=== PATIENT | female | born 1970 | race Hispanic/Latino ===

== ENCOUNTER 2017-03-28 16:33 | Emergency (ER) | payer SELFPAY ==
[2017-03-28] MEDS ORDERED: MOTRIN PO ONE (18:48)
[2017-03-28] MEDS ORDERED: NORCO 5/325 PO ONE (18:48)
--- NOTE | 2017-03-28 20:29 | XRay Report ---
FINAL REPORT PROCEDURE: XR KNEE THREE VIEWS RIGHT TECHNIQUE: RIGHT knee radiographs, AP, lateral and oblique views. CPT 57097 HISTORY: Knee pain after trauma. Rt knee pain status post fall. COMPARISON: No prior studies are available for comparison. FINDINGS: Fracture (s) and/or Dislocation(s): There is no plain film evidence of distinct acute fracture. There is mild irregularity of the lateral tibial plateau. This could be degenerative or could be related to an old fracture. I feel this is unlikely to be a acute fracture. Alignment: Normal . Joint space(s): Normal . Soft tissues: Normal . Bone mineralization: Mild degenerative change throughout.. Foreign bodies: None . IMPRESSION: 1. There is no plain film evidence of distinct acute fracture or dislocation. 2. Mild degenerative change throughout. 3. Some irregularity of lateral tibial plateau is nonspecific. However I suspect it may be degenerative or could be related to an old fracture rather than an acute nondisplaced fracture.
--- NOTE | 2017-03-28 20:36 | XRay Report ---
FINAL REPORT PROCEDURE: XR ELBOW 2V LT TECHNIQUE: LEFT elbow radiographs, including AP and lateral views. HISTORY: Left elbow pain after trauma lt elbow pain sp fall COMPARISON: No prior studies are available for comparison. FINDINGS: Fracture (s) and/or Dislocation(s): There is no plain film evidence of acute fracture or dislocation.. Alignment: Normal . Joint space(s): Normal . Soft tissues: There is a small focal faint round calcific density in the soft tissues anterior to the distal humerus on the lateral view. The significance of this is uncertain. However this is likely incidental and unrelated to the patient's trauma. Bone mineralization: Normal . Foreign bodies: None . IMPRESSION: There is no plain film evidence of fracture or dislocation or acute finding in the left elbow.
[2017-03-28 21:40] VITALS: BP 122/77
--- NOTE | 2017-03-28 22:06 | Emergency Department Report ---
Entered by NARDA YANG, acting as scribe for HAILEY COBOS NP. ED Fall HPI - General Chief Complaint: Fall Stated Complaint: FALL/LT ARM PAIN Time Seen by Provider: 03/28/17 18:42 Source: patient Mode of arrival: Ambulatory Limitations: No Limitations - History of Present Illness Initial Comments: 46 y/o female presents to ED c/o left arm pain secondary to fall at 1500 today. She reports she was walking in a parking lot at a store when she tripped and fell, twice, denying striking her head or LOC. She reports she felt lightheaded and dazed immediately after the fall. She states she landed on her right knee and her left forearm, attempting to stop her fall. She reports a cramping pain in her left forearm with mild tingling, and radiated pain into her left hand and elbow. She states she has mild right knee pain, noting Hx of right knee surgery greater than 5 years ago. Pt notes she has been ambulatory since the fall. She denies neck pain or back pain. Pt advises she thinks her tetanus is up to date. No additional complaints. MD Complaint: fall Onset/Timin -: Sudden, hour(s) Time: 15:00 Fall From: standing (walking in a parking lot) When Fall Occurred: just prior to arrival Fall Witnessed: yes, by bystander Place Fall Occurred: other (parking lot at a store) Loss of Consciousness: none Prolonged Down Time?: no Symptoms Prior to Fall: other (lightheadedness) Location: other (left arm, right knee) Location - Extremities: Left: Elbow, Forearm (pain, cramping, radiates to elbow and hand), Hand, Right: Knee (pain, struck ground, Hx right knee surgery greater than 5 years ago) Severity: moderate Severity scale (0 -10): 10 Quality: other (cramping) Context: tripped/slipped Associated Symptoms: lightheaded, other (negative back pain, tingling to hands) . denies: neck pain - Related Data Previous Rx's Medication Instructions Recorded Last Taken Type HYDROcodone/APAP 5-325 [[place] 1 each PO Q6HR PRN #10 tablet 03/28/17 Unknown Rx 5/325] Ibuprofen [Motrin] 600 mg PO Q8H PRN #15 tablet 03/28/17 Unknown Rx Allergies Allergy/AdvReac Type Severity Reaction Status Date / Time Penicillins Allergy Hives Verified 03/28/17 16:51 ED Review of Systems Comment: All other systems reviewed and negative Cardiovascular: denies: chest pain Musculoskeletal: other (negative neck pain, postive for left forearm, left elbow , left hand pain, right knee pain). denies: back pain Skin: other (abrasion to R arm ). denies: change in color Neurological: numbness (left forearm, hand), other (Positive for lightheadedness , negative for LOC) ED Past Medical Hx - Past Medical History Previous Medical History?: Yes Hx Headaches / Migraines: Yes Additional medical history: gallstones - Surgical History Past Surgical History?: No - Social History Smoking Status: Former Smoker Substance Use Type: Alcohol - Medications Home Medications: Home Medications Medication Instructions Recorded Confirmed Last Taken Type HYDROcodone/APAP 5-325 [[place] 1 each PO Q6HR PRN #10 tablet 03/28/17 Unknown Rx 5/325] Ibuprofen [Motrin] 600 mg PO Q8H PRN #15 tablet 03/28/17 Unknown Rx ED Physical Exam - General Limitations: No Limitations General appearance: alert, in no apparent distress - Head Head exam: Present: atraumatic, normocephalic, normal inspection - Eye Eye exam: Present: normal appearance, PERRL, EOMI Pupils: Present: normal accommodation - ENT ENT exam: Present: normal exam, normal orophraynx, mucous membranes moist, TM's normal bilaterally, normal external ear exam - Neck Neck exam: Present: normal inspection, full ROM. Absent: tenderness, lymphadenopathy - Respiratory Respiratory exam: Present: normal lung sounds bilaterally. Absent: respiratory distress, wheezes, rales, rhonchi - Cardiovascular Cardiovascular Exam: Present: regular rate, normal rhythm, normal heart sounds - GI/Abdominal GI/Abdominal exam: Present: soft. Absent: distended, tenderness, guarding, rebound - Extremities Exam Extremities exam: Present: tenderness, normal capillary refill - Expanded Upper Extremity Exam Left General: Present: normal inspection. Absent: abrasion Shoulder Exam: Present: normal inspection, full ROM. Absent: tenderness, swelling, abrasion, deformity Upper Arm exam: Present: normal inspection, full ROM. Absent: tenderness (left forearm), swelling, abrasion, deformity Elbow exam: Present: normal inspection, full ROM, tenderness, ecchymosis. Absent: swelling, abrasion, crepidus Forearm Wrist exam: Present: normal inspection, full ROM. Absent: tenderness Hand Wrist exam: Present: normal inspection, full ROM. Absent: tenderness, abrasion, deformity Vascular: Present: normal capillary refill, radial pulse (2+ left radial). Absent: vascular compromise - Expanded Lower Extremity Exam Right Upper Leg exam: Present: normal inspection Knee exam: Present: full ROM, tenderness (R lateral knee ), swelling, abrasion, ecchymosis. Absent: dislocation Lower Leg exam: Present: normal inspection, full ROM. Absent: tenderness Ankle exam: Present: normal inspection, full ROM. Absent: tenderness - Back Exam Back exam: Present: normal inspection, full ROM. Absent: tenderness, muscle spasm, paraspinal tenderness, vertebral tenderness - Neurological Exam Neurological exam: Present: alert, oriented X3, CN II-XII intact. Absent: altered, motor sensory deficit - Psychiatric Psychiatric exam: Present: normal affect, normal mood - Skin Skin exam: Present: warm, dry, normal color, abrasion (superfical abrasion to R fa, no active bleeding ) ED Course Vital Signs 03/28/17 03/28/17 16:45 21:39 Temperature 98.3 F 98.4 F Pulse Rate 96 H 90 Respiratory 20 20 Rate Blood Pressure 125/87 Blood Pressure 122/77 [Right] O2 Sat by Pulse 99 99 Oximetry - Reevaluation(s) Reevaluation #1: 03/28/17 20:44 PT states pain medication helped decrease her pain. PT aware of XR results and plan of care. Reevaluation #2: 03/28/17 22:05 PT placed in L arm sling and R knee immobilizer by nurse. PT NVI. - Pulse Oximetry Interpretation Digit-Finger Initial Pulse Oximetry Readin Actions Taken: none ED Medical Decision Making - Radiology Data Radiology results: report reviewed, image reviewed L elbow- No fx R knee- OA, no fx - Differential Diagnosis fracture, contusion, abrasion Critical Care Time: No ED Disposition Clinical Impression: Fall Qualifiers: Encounter type: initial encounter Qualified Code(s): W19.XXXA - Unspecified fall, initial encounter Left elbow contusion Qualifiers: Encounter type: initial encounter Qualified Code(s): S50.02XA - Contusion of left elbow, initial encounter Contusion of right knee Qualifiers: Encounter type: initial encounter Qualified Code(s): S80.01XA - Contusion of right knee, initial encounter Disposition: DISCHARGED TO HOME OR SELFCARE Is pt being admited?: No Does the pt Need Aspirin: No Condition: Stable Instructions: Knee Sprain (ED), Elbow Sprain (ED), Knee Pain (ED), RICE Therapy (ED), Fall Prevention (ED), Knee Immobilizer (ED) Additional Instructions: No driving or ETOH after [place] Follow up with your orthopedist in 2-3 days Your injuries may require further imaging. Prescriptions: HYDROcodone/APAP 5-325 [[place] 5/325] 1 each PO Q6HR PRN #10 tablet PRN Reason: Pain Ibuprofen [Motrin] 600 mg PO Q8H PRN #15 tablet PRN Reason: Pain Referrals: PRIMARY CARE, [Primary Care Provider] - 3-5 Days OPAL GUERRERO MD [Staff Physician] - 3-5 Days Time of Disposition: 20:49 This documentation as recorded by the CELIA pelletier AHSAN,accurately reflects the service I personally performed and the decisions made by ,HAILEY COBOS, MICHELLE.
== END 2017-03-28 22:49 | disposition home or self-care (01) ==
LOC: ED 16:33
DX: S50.02XA Contusion of left elbow, initial encounter (principal); S80.01XA Contusion of right knee, initial encounter; W18.30XA Fall on same level, unspecified, initial encounter; Y93.9 Activity, unspecified; Y92.9 Unspecified place or not applicable; Y99.9 Unspecified external cause status
CPT/HCPCS: 99284

== ENCOUNTER 2019-04-13 10:31 | Emergency (ER) | payer OTHER ==
[2019-04-13 11:31] LABS: Basophils # (Auto) 0.1 K/mm3 (0.0-0.1); Basophils % (Auto) 1.5 % (0.0-1.8); Eosinophils # (Auto) 0.2 K/mm3 (0.0-0.4); Eosinophils % (Auto) 2.7 % (0.0-4.3); Hematocrit 36.9 % (30.3-42.9); Hemoglobin 12.7 gm/dl (10.1-14.3); Lymphocytes % (Auto) 30.2 % (13.4-35.0); Mean Corpuscular HGB Conc 34 % (30-34); Mean Corpuscular Volume 86 fl (79-97); Monocytes # (Auto) 0.3 K/mm3 (0.0-0.8); Monocytes % (Auto) 5.2 % (0.0-7.3); Platelet Count 312 K/mm3 (140-440); Red Cell Distribution Width 14.2 % (13.2-15.2)
[2019-04-13] MEDS ORDERED: SUBLIMAZE IV ONE ×3 (11:47→16:30)
[2019-04-13] MEDS ORDERED: ZOFRAN IV ONE (11:47)
[2019-04-13 11:56] LABS: BUN/Creatinine Ratio 17; Blood Urea Nitrogen 12 mg/dL (7-17); Hemolysis Index 6
--- NOTE | 2019-04-13 12:05 | XRay Report ---
AP CHEST: HISTORY: chest pain AP view of the chest demonstrates a normal mediastinal and cardiac contour with clear lungs and normal bony and soft tissue structures. IMPRESSION: Unremarkable AP chest.
--- NOTE | 2019-04-13 12:31 | Emergency Department Report ---
HPI - General Chief Complaint: Chest Pain Time Seen by Provider: 04/13/19 11:35 - HPI HPI: Room 4 The patient is a 49-year-old female presenting with a chief complaint of chest pain. Patient states her symptoms began this morning with substernal chest pain described as a tightness radiating to her back. Patient states she has had shortness of breath associated with this pain but denies nausea/vomiting or diaphoresis. Patient admits to pleuritic component. The patient states she's had a nonproductive cough intermittently for several months. Patient denies any history of fever or recent flights/long car trips. Patient currently gives her pain a score of 8/10. Patient states she's never had a stress test or cardiac catheterization Location: [See above] Duration: [See above] Quality: [See above] Severity: [See above] Modifying factors: [see above] Context: [see above] Mode of transportation: [not driving] ED Past Medical Hx - Past Medical History Hx Headaches / Migraines: Yes Additional medical history: gallstones - Surgical History Additional Surgical History: Knee surgery - Family History Family history: no significant - Social History Smoking Status: Never Smoker Substance Use Type: None (patient denies illicit drug use) - Medications Home Medications: Home Medications Medication Instructions Recorded Confirmed Last Taken Type No Known Home Medications [No 04/13/19 04/13/19 Unknown History Reported Home Medications] ED Review of Systems ROS: Stated complaint: CHEST PAIN/ANDREY Other details as noted in HPI Constitutional: denies: diaphoresis Eyes: denies: eye pain ENT: denies: throat pain Respiratory: shortness of breath, other (pleurisy) Cardiovascular: chest pain Endocrine: no symptoms reported Gastrointestinal: denies: nausea, vomiting Genitourinary: denies: dysuria Musculoskeletal: denies: back pain Neurological: denies: headache Physical Exam - Physical Exam Vital Signs: Vital Signs 04/13/19 11:08 Temperature 98.3 F Pulse Rate 83 Respiratory 18 Rate Blood Pressure 143/94 O2 Sat by Pulse 97 Oximetry Physical Exam: GENERAL: The patient is well-developed well-nourished female lying on stretcher not appearing to be in acute distress. [] HEENT: Normocephalic. Atraumatic. Extraocular motions are intact. Patient has moist mucous membranes. NECK: Supple. Trachea midline CHEST/LUNGS: Clear to auscultation. There is no respiratory distress noted. HEART/CARDIOVASCULAR: Regular. There is no tachycardia. There is no gallop rub or murmur. ABDOMEN: Abdomen is soft, nontender. Patient has normal bowel sounds. There is no abdominal distention. SKIN: There is no rash. There is no edema. There is no diaphoresis. NEURO: The patient is awake, alert, and oriented. The patient is cooperative. The patient has normal speech MUSCULOSKELETAL: There is no evidence of acute injury. ED Course Vital Signs 04/13/19 11:08 Temperature 98.3 F Pulse Rate 83 Respiratory 18 Rate Blood Pressure 143/94 O2 Sat by Pulse 97 Oximetry ED Medical Decision Making - Lab Data Result diagrams: 04/13/19 11:20 04/13/19 11:20 Laboratory Tests 04/13/19 04/13/19 04/13/19 11:20 11:20 11:20 WBC 6.7 RBC 4.30 Hgb 12.7 Hct 36.9 MCV 86 MCH 30 MCHC 34 RDW 14.2 Plt Count 312 Lymph % (Auto) 30.2 Dent % (Auto) 5.2 Eos % (Auto) 2.7 Baso % (Auto) 1.5 Lymph # 2.0 Dent # 0.3 Eos # 0.2 Baso # 0.1 Seg Neutrophils % 60.4 Seg Neutrophils # 4.0 D-Dimer Sodium 139 Potassium 4.4 Chloride 102.5 Carbon Dioxide 25 Anion Gap 16 BUN 12 Creatinine 0.7 Estimated GFR > 60 BUN/Creatinine Ratio 17 Glucose 97 Calcium 9.0 Troponin T < 0.010 HCG, Qual Negative 04/13/19 11:53 WBC RBC Hgb Hct MCV MCH MCHC RDW Plt Count Lymph % (Auto) Dent % (Auto) Eos % (Auto) Baso % (Auto) Lymph # Dent # Eos # Baso # Seg Neutrophils % Seg Neutrophils # D-Dimer 253.02 H Sodium Potassium Chloride Carbon Dioxide Anion Gap BUN Creatinine Estimated GFR BUN/Creatinine Ratio Glucose Calcium Troponin T HCG, Qual - EKG Data -: EKG Interpreted by Nj EKG shows normal: sinus rhythm Rate: normal - EKG Data When compared to previous EKG there are: previous EKG unavailable Interpretation: other (no ischemic changes seen) - Radiology Data Radiology results: report reviewed (chest x-ray, CT chest), image reviewed (chest x-ray, CT chest) interpreted by me: Chest x-ray-no focal infiltrates, no pneumothorax [facility] [address] [place] [address] XRay Report Signed Patient: HAILEY WILCOX MR#: [id number] : 1970 Acct:[id number] Age/Sex: 49 / F ADM Date: 04/13/19 Loc: ED Attending Dr: Ordering Physician: MIRTHA HOLMAN MD Date of Service: 04/13/19 Procedure(s): XR chest 1V ap Accession Number(s): [id number] cc: MIRTHA HOLMAN MD Fluoro Time In Minutes: AP CHEST: HISTORY: chest pain AP view of the chest demonstrates a normal mediastinal and cardiac contour with clear lungs and normal bony and soft tissue structures. IMPRESSION: Unremarkable AP chest. Transcribed By: TTR Dictated By: MARÍA FRANCO JR, MD Electronically Authenticated By: MARÍA FRNACO JR, MD Signed Date/Time: 04/13/19 1201 DD/ 1200 TD/TT: 04/13/[address] chest (read by radiologist)-minimal dependent atelectasis and otherwise negative exam. - Differential Diagnosis ACS, PE, pericarditis, GERD Critical care attestation.: If time is entered above; I have spent that time in minutes in the direct care of this critically ill patient, excluding procedure time. ED Disposition Clinical Impression: Chest pain Disposition: 09 OP ADMIT IP TO THIS HOSP Is pt being admited?: Yes Does the pt Need Aspirin: Yes Condition: Fair Instructions: Chest Pain (ED) Time of Disposition: 14:39 (Hospitalist notified (Dr Barahona))
--- NOTE | 2019-04-13 14:31 | Cat Scan Report ---
PROCEDURE: CT ANGIO CHEST TECHNIQUE: Computerized tomographic angiography of the chest was performed during the IV injection o f iodinated nonionic contrast including image processing. The image data was postprocessed using 2-d imensional multiplanar reformatted (MPR) and 3-dimensional (MIP and/or volume rendered) techniques. A utomated exposure control, adjustment of mA and/or kV according to patient size, or iterative reconst ruction dose optimization techniques were utilized. CT DOSE LENGTH PRODUCT: 724.5 mGycm HISTORY: chest pain, pleurisy COMPARISONS: None . FINDINGS: Pulmonary out flow tract, right and left main pulmonary arteries and the approximal branches: Clear, no filling defects seen to suggest pulmonary embolus. Pericardium: No evidence of pericardial effusion. Thoracic aorta: No evidence of aneurysmal dilatation or dissection. Coronary arteries: Unremarkable. Mediastinum and hilar regions: Non specific subcentimeter lymph nodes are visualized. No pathologica lly enlarged lymph nodes or masses are identified. Lung [place]: Minimal dependent atelectasis. Lungs otherwise are clear. Upper abdomen: No acute or focal abnormality is seen. Other: No acute bone abnormalities identified. IMPRESSION: Minimal dependent atelectasis otherwise negative exam. This document is electronically signed by Osmin Blount MD., Apr 13 2019 02:29:53 PM ET
[2019-04-13] MEDS ORDERED: ASPIRIN PO ONE (14:40)
[2019-04-13] MEDS ORDERED: PROTONIX PO ONE (14:46)
[2019-04-13 15:23] LABS: Alanine Aminotransferase 19 units/L (7-56); Albumin 3.9 g/dL (3.9-5)
[2019-04-13 15:30] LABS: Bilirubin,Direct < 0.2 mg/dL (0-0.2)
[2019-04-13 15:54] VITALS: BP 116/65
--- NOTE | 2019-04-13 17:41 | Event Note ---
Date: 04/13/19 49 YO Female presents to ED for evaluation. Pt treated IAW ACS protocol. Serial cardiac enzymes, ekg, and telemetry were unremarkable. D dimer was elevated, but CTA chest was negative for PE. Pt medically optimized and back to usual state of health. Pt discharged home and instructed to F/U pcp 1wk, Cardiology prn for further outpatient testing. Pt symptoms consistent with GERD. Pt treated with PPI therapy, and discharged with PPI. GENERAL: The patient is well-developed well-nourished female lying on stretcher not appearing to be in acute distress. [] HEENT: Normocephalic. Atraumatic. Extraocular motions are intact. Patient has moist mucous membranes. NECK: Supple. Trachea midline CHEST/LUNGS: Clear to auscultation. There is no respiratory distress noted. HEART/CARDIOVASCULAR: Regular. There is no tachycardia. There is no gallop rub or murmur. ABDOMEN: Abdomen is soft, nontender. Patient has normal bowel sounds. There is no abdominal distention. SKIN: There is no rash. There is no edema. There is no diaphoresis. NEURO: The patient is awake, alert, and oriented. The patient is cooperative. The patient has normal speech MUSCULOSKELETAL: There is no evidence of acute injury.
== END 2019-04-13 18:07 | disposition admitted as inpatient to this hospital (09) ==
LOC: ED 10:31
DX: R07.89 Other chest pain (principal); G43.909 Migraine, unspecified, not intractable, without status migrainosus; Z98.890 Other specified postprocedural states; Z88.0 Allergy status to penicillin
CPT/HCPCS: 36415; 71045; 71275; 80048; 80076; 84484; 84703; 85025; 85379; 93005; 93010; 96374; 96375; 96376; 99285; J2405; J3010; Q9967

== ENCOUNTER 2021-03-30 06:50 | Inpatient (IN) | payer OTHER, SELFPAY ==
[2021-03-30 08:04] LABS: Bacteria,Urine 1+ /HPF (Negative); Bilirubin,Urine NEG (Negative); Blood,Urine MOD (Negative); Color,Urine Yellow (Yellow); Mucus,Urine FEW /HPF; Urobilinogen,Urine < 2.0 mg/dL (<2.0)
--- NOTE | 2021-03-30 08:05 | Emergency Department Report ---
Blank Doc - Documentation Documentation: 50-year-old female with RLQ pain with n/v. 1- This initial assessment/diagnostic orders/clinical plan/ treatment(s) is/are subject to change based on pt's health status, clinical progression and re- assessment by fellow clinical providers in the ED. Further treatment and workup at subsequent clinical provers discretion. Patient/guardians urged not to elope from ED as their condition may be serious if not clinically assessed and managed. 2-labs 3-UA
[2021-03-30 09:19] LABS: Basophils # (Auto) 0.1 K/mm3 (0.0-0.1); Basophils % (Auto) 0.7 % (0.0-1.8); Eosinophils # (Auto) 0.2 K/mm3 (0.0-0.4); Eosinophils % (Auto) 2.3 % (0.0-4.3); Lymphocytes # (Auto) 1.8 K/mm3 (1.2-5.4); Lymphocytes % (Auto) 24.2 % (13.4-35.0); Mean Corpuscular HGB Conc 33 % (30-34); Mean Corpuscular Volume 88 fl (79-97); Monocytes # (Auto) 0.4 K/mm3 (0.0-0.8); Monocytes % (Auto) 5.3 % (0.0-7.3); Platelet Count 321 K/mm3 (140-440); Red Blood Count 4.09 M/mm3 (3.65-5.03); Red Cell Distribution Width 13.6 % (13.2-15.2)
[2021-03-30 09:28] LABS: Alanine Aminotransferase 15 units/L (7-56); Albumin 4.1 g/dL (3.9-5); BUN/Creatinine Ratio 19; Blood Urea Nitrogen 15 mg/dL (7-17); Calcium 8.8 mg/dL (8.4-10.2); Hemolysis Index 6
[2021-03-30] MEDS ORDERED: ONDANSETRON 4 MG ODT TAB PO ONE (10:40)
--- NOTE | 2021-03-30 10:42 | Emergency Department Report ---
HPI - General Chief Complaint: Abdominal Pain Time Seen by Provider: 03/30/21 07:30 - HPI HPI: This is a 50-year-old female presents to the emergency department with a complaint of right upper quadrant abdominal pain, along with nausea and vomiting, that started this morning. Patient says she woke up around 3 AM with the pain and then the nausea with vomiting started about 5 AM. Currently her abdominal pain is 5 out of 10 intensity. No known aggravating or alleviating factors. She does have a history of previous gallstones and says that this feels similar. She denies any fever, chest pain, back pain, diarrhea or constipation, vaginal bleeding or discharge, or dysuria. She has not taken anything for symptoms prior to presentation today. No recent travel or sick contacts at home. ED Past Medical Hx - Past Medical History Hx Headaches / Migraines: Yes Additional medical history: gallstones - Surgical History Additional Surgical History: Knee surgery - Social History Smoking Status: Never Smoker Substance Use Type: None - Medications Home Medications: Home Medications Medication Instructions Recorded Confirmed Last Taken Type Pantoprazole [Protonix] 40 mg PO QDAY #30 tablet 04/13/19 Unknown Rx ED Review of Systems ROS: Stated complaint: VOMITING/RT STOMACH PAIN Other details as noted in HPI Comment: All other systems reviewed and negative Constitutional: denies: chills, fever Eyes: denies: eye pain, vision change ENT: denies: ear pain, throat pain Respiratory: denies: cough, shortness of breath Cardiovascular: denies: chest pain, palpitations Gastrointestinal: abdominal pain, nausea, vomiting Genitourinary: denies: dysuria, discharge Musculoskeletal: denies: back pain, arthralgia Skin: denies: rash, lesions Neurological: denies: headache, weakness Physical Exam - Physical Exam Vital Signs: Vital Signs 03/30/21 10:26 Temperature 98 F Pulse Rate 77 Respiratory 16 Rate Blood Pressure 141/96 [Right] O2 Sat by Pulse 100 Oximetry Physical Exam: GENERAL: The patient is well-developed well-nourished. HENT: Normocephalic. Atraumatic. Patient has moist mucous membranes. EYES: Extraocular motions are intact. NECK: Supple. Trachea is midline. CHEST/LUNGS: Clear to auscultation. There is no respiratory distress noted. HEART/CARDIOVASCULAR: Regular. There is no tachycardia. There is no murmur. ABDOMEN: Abdomen is soft. Right upper quadrant abdominal tenderness to palpation. No guarding. No peritoneal signs with heel strike. Patient has normal bowel sounds. There is no abdominal distention. SKIN: Skin is warm and dry. NEURO: The patient is awake, alert, and cooperative. The patient has no focal neurologic deficits. Normal speech. MUSCULOSKELETAL: There is no tenderness or deformity. There is no limitation range of motion. BACK: No CVA tenderness to palpation. ED Course Vital Signs 03/30/21 10:26 Temperature 98 F Pulse Rate 77 Respiratory 16 Rate Blood Pressure 141/96 [Right] O2 Sat by Pulse 100 Oximetry - Consultations Consultation #1: 03/30/21 12:33 I spoke to the general surgeon on-call, Dr. Suresh. She asked for the patient to get some gentle IV fluid, IV antibiotics, clear liquid diet for the rest of the day, nothing by mouth after midnight, and for the patient to be admitted to the hospitalist service. ED Medical Decision Making - Lab Data Result diagrams: 03/30/21 07:58 03/30/21 07:58 - Radiology Data Radiology results: report reviewed Abdominal ultrasound-Limited INDICATION: Right upper quadrant pain FINDINGS: Aorta and IVC appear normal. Liver appears normal. Gallbladder wall is thickened measuring 3 to 4 mm. Common bile duct measures 4 mm. Pancreas visualized appears normal. Body habitus limits examination. Echogenic focus is seen in the gallbladder suggesting multiple gallstones. IMPRESSION: 1. Cholelithiasis with gallbladder wall thickening. Findings could represent early cholecystitis. Clinical correlation. - Medical Decision Making This patient presents with right upper quadrant abdominal pain and nausea with vomiting that started earlier this morning. On examination there is reproducible right upper quadrant abdominal tenderness to palpation. Labs are mostly unremarkable including CBC, metabolic panel and urinalysis. A right upper quadrant abdominal ultrasound was done that shows cholelithiasis with some gallbladder wall thickening concerning for early cholecystitis. General surgery was contacted and consulted and their recommendations are in the chart in the consultation section. Clear liquid diet during the day and nothing by mouth after midnight. The patient was presented to the hospitalist, Dr. Barahona, for admission. Critical Care Time: No Critical care attestation.: If time is entered above; I have spent that time in minutes in the direct care of this critically ill patient, excluding procedure time. ED Disposition Clinical Impression: Acute cholecystitis Cholelithiasis Qualifiers: Cholelithiasis location: gallbladder Cholecystitis presence: with cholecystitis Cholecystitis acuity: unspecified acuity Biliary obstruction: without biliary obstruction Qualified Code(s): K80.10 - Calculus of gallbladder with chronic cholecystitis without obstruction Disposition: DC-09 OP ADMIT IP TO THIS HOSP Is pt being admited?: Yes Condition: Fair Instructions: Abdominal Pain (ED) Time of Disposition: 13:32
--- NOTE | 2021-03-30 11:56 | Ultrasound Report ---
Abdominal ultrasound-Limited INDICATION: Right upper quadrant pain FINDINGS: Aorta and IVC appear normal. Liver appears normal. Gallbladder wall is thickened measuring 3 to 4 mm. Common bile duct measures 4 mm. Pancreas visualized appears normal. Body habitus limits ex amination. Echogenic focus is seen in the gallbladder suggesting multiple gallstones. IMPRESSION: 1. Cholelithiasis with gallbladder wall thickening. Findings could represent early cholecystitis. Cli nical correlation. Signer Name: Philip Broderick MD Signed: 03/30/2021 11:52 AM Workstation Name: [id number]
[2021-03-30] MEDS ORDERED: metroNIDAZOLE/NS 500 MG/100 ML 500 MG/100 ML BAG IV ONE (12:32)
[2021-03-30] MEDS ORDERED: SODIUM CHLORIDE 0.9% 1000 ML 1,000 ML IV ONE (12:33)
[2021-03-30] MEDS ORDERED: MORPHINE 4 MG/1 ML INJ IV ONE (13:01)
[2021-03-30] MEDS ORDERED: ONDANSETRON 4 MG/2 ML INJ IV PRN (14:48)
[2021-03-30] MEDS ORDERED: ACETAMINOPHEN 325 MG TAB PO PRN (14:48)
--- NOTE | 2021-03-30 14:56 | History and Physical Report ---
History of Present Illness Chief complaint: My stomach hurts History of present illness: 50 YO Female with GERD, Cholelithiasis presents to ED for evaluation. Pt states that she reports "My stomach hurts". Pt states that she has experienced abdominal pain over the past 1 day with persistent symptoms over the same time frame. Pt states that pain is 7/10, constant, localized to the right upper quadrant,nonradiating, associated with nausea and multiple episodes of vomiting. Patient awakened at 0300 hrs with abdominal pain. Pt denies fever, chills, chest pain, back pain, palpitations, productive cough, skin rash, recent ill contacts, ingestion of food/water from new of different sources, or known exposure to COVID 19. Pt transported to [facility] via private vehicle for further care and evaluation of the aforementioned symptoms. Pt seen and evaluated in ED. All labs and images reviewed. Pt underwent Ultrasound abdomen and pelvis and found to have evidence of cholecystitis. Surgery team consulted in ED. Pt pending surgical intervention. No prior admission for review. No medication listed at time of admission for reconciliation. Past History Past Medical History: GERD, other (see hpi) Past Surgical History: Other (Knee surgery) Social history: , lives with family Family history: no significant family history (reviewed) Medications and Allergies Allergies Allergy/AdvReac Type Severity Reaction Status Date / Time Penicillins Allergy Hives Verified 03/30/21 07:22 Home Medications Medication Instructions Recorded Confirmed Last Taken Type Pantoprazole [Protonix] 40 mg PO QDAY #30 tablet 04/13/19 Unknown Rx Active Meds: Active Medications Acetaminophen (Acetaminophen 325 Mg Tab) 650 mg PO Q4H PRN PRN Reason: Pain MILD(1-3)/Fever >100.5/AMES Sodium Chloride (Nacl 0.9% 1000 Ml) 1,000 mls @ 125 mls/hr IV ONCE ONE Stop: 03/30/21 20:32 Last Admin: 03/30/21 12:59 Dose: 125 mls/hr Documented by: Sodium Chloride (Nacl 0.9% 1000 Ml) 1,000 mls @ 125 mls/hr IV DIRECT [place] Ondansetron HCl (Ondansetron 4 Mg/2 Ml Inj) 4 mg IV Q8H PRN PRN Reason: Nausea And Vomiting Sodium Chloride (Sodium Chloride 0.9% 10 Ml Flush Syringe) 10 ml IV BID [place] Sodium Chloride (Sodium Chloride 0.9% 10 Ml Flush Syringe) 10 ml IV PRN PRN PRN Reason: LINE FLUSH Review of Systems Constitutional: no weight loss, no weight gain, no fever, no chills Ears, nose, mouth and throat: no ear pain, no ear discharge, no tinnitis, no nasal congestion Breasts: no change in shape, no swelling, no mass Cardiovascular: no chest pain, no syncope Respiratory: no cough, no cough with sputum Gastrointestinal: abdominal pain, nausea, vomiting, no change in bowel habits, no hematemesis, no BRBPR, no melena, no hematochezia Genitourinary Female: no pelvic pain, no flank pain, no dysuria, no urinary f requency, no urgency Rectal: no pain, no incontinence, no bleeding Musculoskeletal: no neck stiffness, no arm numbness/tingling, no low back pain, no leg numbness/tingling, no redness of joints Integumentary: no rash, no pruritis, no redness, no sores, no wounds, no boils Neurological: no head injury, no paralysis, no weakness, no parathesias, no numbness, no seizures, no syncope Psychiatric: no anxiety, no memory loss, no change in sleep habits, no insomnia, no change in appetite, no change in libido, no disorientation Endocrine: no cold intolerance, no heat intolerance, no excessive thirst, no polydipsia, no polyuria Hematologic/Lymphatic: no easy bruising, no lymphadenopathy Allergic/Immunologic: no urticaria, no allergic rhinitis, no wheezing, no persistent infections, no anaphylaxis Exam - Constitutional Vitals: Temp Pulse Resp BP Pulse Ox 98.2 F 77 18 128/75 98 03/30/21 13:01 03/30/21 13:01 03/30/21 13:01 03/30/21 13:01 03/30/21 13:01 General appearance: Present: mild distress, obese - EENT Eyes: Present: PERRL ENT: hearing intact, clear oral mucosa - Neck Neck: Present: supple, normal ROM - Respiratory Respiratory effort: normal Respiratory: bilateral: CTA - Cardiovascular Heart Sounds: Present: S1 & S2. Absent: rub, click - Extremities Extremities: pulses symmetrical, No edema Peripheral Pulses: within normal limits - Abdominal General gastrointestinal: Present: soft, non-tender, non-distended, normal bowel sounds Female genitourinary: Present: normal - Integumentary Integumentary: Present: clear, warm, dry - Musculoskeletal Musculoskeletal: gait normal, strength equal bilaterally - Psychiatric Psychiatric: appropriate mood/affect, intact judgment & insight - Neurologic Neurologic: CNII-XII intact, moves all extremities Results - Labs CBC & Chem 7: 03/30/21 07:58 03/30/21 07:58 Labs: Abnormal lab results 03/30/21 Range/Units 07:58 Glucose 113 H (65-100) mg/dL Assessment and Plan - Patient Problems (1) Acute cholecystitis Current Visit: Yes Status: Acute Plan to address problem: Bowel rest, ultrasound abdomen, IVF resuscitation therapy, pain control, IV antibiotic therapy, surgery team consulted. (2) Obesity (BMI 30-39.9) Current Visit: Yes Status: Acute Plan to address problem: Balanced diet, increased physical activity at discharge, outpatient pulmonary F/U for sleep study (3) GERD (gastroesophageal reflux disease) Current Visit: No Status: Acute Qualifiers: Esophagitis presence: without esophagitis Qualified Code(s): K21.9 - Gastro-esophageal reflux disease without esophagitis Plan to address problem: PPI therapy, supportive care. (4) DVT prophylaxis Current Visit: Yes Status: Acute Plan to address problem: SCD to BLE while in bed, Pt is ambulatory
--- NOTE | 2021-03-30 17:31 | Consultation ---
History of Present Illness Consult date: 03/30/21 Reason for consult: gallstones Chief complaint: Abdominal pain - History of present illness History of present illness: 50-year-old female with a past medical history of hyperlipidemia presented to the emergency room with acute onset right upper quadrant abdominal pain at 3 in the morning that woke her from sleep. The patient states the pain is nagging and is localized to the right side of the abdomen. There are no alleviating or exacerbating factors. She has had pain like this in the past several times however states it was more mild. She has presented to the ER for this in the past I was told she had gallstones. She states she was never referred to a surgeon. During this episode, the patient had multiple episodes of nausea and vomiting. No fevers or chills. No diarrhea, constipation. Her last meal was steak. Past History Past Medical History: GERD, hyperlipidemia, other (Ulysses's) Past Surgical History: Other (Knee surgery) Social history: , lives with family Family history: no significant family history (reviewed) Medications and Allergies Allergies Allergy/AdvReac Type Severity Reaction Status Date / Time Penicillins Allergy Hives Verified 03/30/21 07:22 Home Medications Medication Instructions Recorded Confirmed Last Taken Type Pantoprazole [Protonix] 40 mg PO QDAY #30 tablet 04/13/19 Unknown Rx Active Meds: Active Medications Acetaminophen (Acetaminophen 325 Mg Tab) 650 mg PO Q4H PRN PRN Reason: Pain MILD(1-3)/Fever >100.5/AMES Sodium Chloride (Nacl 0.9% 1000 Ml) 1,000 mls @ 125 mls/hr IV ONCE ONE Stop: 03/30/21 20:32 Last Admin: 03/30/21 12:59 Dose: 125 mls/hr Documented by: Sodium Chloride (Nacl 0.9% 1000 Ml) 1,000 mls @ 125 mls/hr IV DIRECT [place] Levofloxacin/Dextrose (Levaquin 500mg/100ml) 500 mg in 100 mls @ 100 mls/hr IV Q24H [place]; Protocol Metronidazole (Flagyl 500 Mg/100 Ml) 500 mg in 100 mls @ 100 mls/hr IV Q8H [place]; Protocol Morphine Sulfate (Morphine 2 Mg/1 Ml Inj) 2 mg IV Q4H PRN PRN Reason: Pain, Moderate (4-6) Ondansetron HCl (Ondansetron 4 Mg/2 Ml Inj) 4 mg IV Q8H PRN PRN Reason: Nausea And Vomiting Sodium Chloride (Sodium Chloride 0.9% 10 Ml Flush Syringe) 10 ml IV BID [place] Sodium Chloride (Sodium Chloride 0.9% 10 Ml Flush Syringe) 10 ml IV PRN PRN PRN Reason: LINE FLUSH Review of Systems All systems: negative (10 point ROS performed and negative except for that listed in HPI) Exam Vital Signs Temp Pulse Resp BP Pulse Ox 98.6 F 75 18 144/105 99 03/30/21 07:21 03/30/21 07:21 03/30/21 07:21 03/30/21 07:21 03/30/21 07:21 Narrative exam: Gen.: Awake, alert, oriented x3. No apparent distress ENT: Trachea midline. No lymphadenopathy. No scleral icterus or conjunctival pallor CV: S1, S2 present Respiratory: No audible wheezes Abdomen: Soft, nondistended, right upper quadrant tenderness to palpation. No rebound, rigidity, guarding Extremities: No clubbing, cyanosis, edema Results - Labs 03/30/21 07:58 03/30/21 07:58 Abnormal lab results 03/30/21 Range/Units 07:58 Glucose 113 H (65-100) mg/dL Diabetes panel 03/30/21 Range/Units 07:58 Sodium 138 (137-145) mmol/L Potassium 4.5 (3.6-5.0) mmol/L Chloride 105.4 (98-107) mmol/L Carbon Dioxide 25 (22-30) mmol/L BUN 15 (7-17) mg/dL Creatinine 0.8 (0.6-1.2) mg/dL Glucose 113 H (65-100) mg/dL Calcium 8.8 (8.4-10.2) mg/dL AST 14 (5-40) units/L ALT 15 (7-56) units/L Alkaline Phosphatase 63 (35-129) units/L Total Protein 7.1 (6.3-8.2) g/dL Albumin 4.1 (3.9-5) g/dL Calcium panel 03/30/21 Range/Units 07:58 Calcium 8.8 (8.4-10.2) mg/dL Albumin 4.1 (3.9-5) g/dL Pituitary panel 03/30/21 Range/Units 07:58 Sodium 138 (137-145) mmol/L Potassium 4.5 (3.6-5.0) mmol/L Chloride 105.4 (98-107) mmol/L Carbon Dioxide 25 (22-30) mmol/L BUN 15 (7-17) mg/dL Creatinine 0.8 (0.6-1.2) mg/dL Glucose 113 H (65-100) mg/dL Calcium 8.8 (8.4-10.2) mg/dL Adrenal panel 03/30/21 Range/Units 07:58 Sodium 138 (137-145) mmol/L Potassium 4.5 (3.6-5.0) mmol/L Chloride 105.4 (98-107) mmol/L Carbon Dioxide 25 (22-30) mmol/L BUN 15 (7-17) mg/dL Creatinine 0.8 (0.6-1.2) mg/dL Glucose 113 H (65-100) mg/dL Calcium 8.8 (8.4-10.2) mg/dL Total Bilirubin < 0.20 (0.1-1.2) mg/dL AST 14 (5-40) units/L ALT 15 (7-56) units/L Alkaline Phosphatase 63 (35-129) units/L Total Protein 7.1 (6.3-8.2) g/dL Albumin 4.1 (3.9-5) g/dL - Imaging US - abdomen: report reviewed, image reviewed Assessment and Plan 50-year-old female with acute cholecystitis Plan: 1. CLD, NPO p MN tonight 2. IVF 3. prn pain and nausea control 4. DVT ppx 5. abx 6. Recommend cholecystectomy. I explained the pathophysiology of gallbladder disease to the patient. I discussed all risks, benefits, alternatives to surgery with the patient. All questions answered and consent obtained. Patient to be added onto the OR schedule for tomorrow 03/31/2021. Thank you for this consultation. Please call with any questions or concerns. Evaluation and treatment of this patient was during the time of the national and state emergency arising from COVID19 coronavirus pandemic. Treatment and procedures performed meet the current and available best practice and guidelines for patient during the COVID pandemic.
[2021-03-30] MEDS: MORPHINE 2 MG/1 ML INJ IV PRN ×2 (19:25→23:49)
[2021-03-30] MEDS: SODIUM CHLORIDE 0.9% 1000 ML 1,000 ML IV SCH (19:30)
[2021-03-30] MEDS: metroNIDAZOLE/NS 500 MG/100 ML 500 MG/100 ML BAG IV SCH (22:25)
[2021-03-31] MEDS: MORPHINE 2 MG/1 ML INJ IV PRN (05:17)
[2021-03-31] MEDS: SODIUM CHLORIDE 0.9% 1000 ML 1,000 ML IV SCH ×2 (05:18→21:55)
[2021-03-31] MEDS: metroNIDAZOLE/NS 500 MG/100 ML 500 MG/100 ML BAG IV SCH ×2 (05:31→14:25)
[2021-03-31 07:57] LABS: Basophils % (Auto) 0.6 % (0.0-1.8); Eosinophils # (Auto) 0.2 K/mm3 (0.0-0.4); Eosinophils % (Auto) 2.5 % (0.0-4.3); Hematocrit 32.5 % (30.3-42.9); Hemoglobin 10.9 gm/dl (10.1-14.3); Lymphocytes # (Auto) 2.1 K/mm3 (1.2-5.4); Lymphocytes % (Auto) 32.6 % (13.4-35.0); Mean Corpuscular HGB Conc 34 % (30-34); Mean Corpuscular Volume 87 fl (79-97); Monocytes # (Auto) 0.3 K/mm3 (0.0-0.8); Monocytes % (Auto) 4.9 % (0.0-7.3); Platelet Count 287 K/mm3 (140-440); Red Blood Count 3.75 M/mm3 (3.65-5.03); Red Cell Distribution Width 13.7 % (13.2-15.2)
[2021-03-31 08:31] LABS: Alanine Aminotransferase 9 units/L (7-56); Albumin 3.5 g/dL (3.9-5); BUN/Creatinine Ratio 15; Blood Urea Nitrogen 12 mg/dL (7-17); Calcium 8.2 mg/dL (8.4-10.2); Hemolysis Index 3
--- NOTE | 2021-03-31 09:20 | Anesthesia Consultation ---
Anesthesia Consult and Med Hx Date of service: 03/31/21 - Airway Anesthetic Teeth Evaluation: Good (Multiple missing teeth) ROM Head & Neck: Adequate Mental/Hyoid Distance: Adequate Mallampati Class: Class II Intubation Access Assessment: Probably Good - Pulmonary Exam CTA: Yes - Pre-Operative Health Status ASA Pre-Surgery Classification: ASA3, Emergency Proposed Anesthetic Plan: General - Pulmonary Hx Smoking: No Hx Asthma: No SOB: No COPD: No Hx Pneumonia: No - Cardiovascular System Hx Hypertension: No Hx Heart Attack/AMI: No Hx Angina: No Hx Pacemaker: No Hx Valvular Heart Disease: No Hx Heart Murmur: No - Central Nervous System Hx Neuromuscular Disorder: No Hx Seizures: No CVA: No - Gastrointestinal Hx Gastroesophageal Reflux Disease: Yes - Endocrine Hx Renal Disease: No Hx Liver Disease: No Hx Insulin Dependent Diabetes: No Hx Non-Insulin Dependent Diabetes: No Hx Thyroid Disease: Yes (Ulysses) - Hematic Hx Anemia: No Hx Sickle Cell Disease: No - Other Systems Hx Alcohol Use: Yes (Rarely) Hx Cancer: No Hx Obesity: Yes - Additional Comments Anesthesia Medical History Comments: Patient denies previous anesthesia complica tions
--- NOTE | 2021-03-31 09:23 | Anesthesia Day of Surgery ---
Anesthesia Day of Surgery - Day of Surgery Patient Examined: Yes Patient H&P Reviewed: Yes Patient is NPO: Yes Beta Blockers: No Cardiac Clearance: No Pulmonary Clearance: No Tolu's Test: N/A
[2021-03-31] MEDS ORDERED: LIDOCAINE (1%) 10 MG/1 ML VIAL 20 ML MDV ONE (13:01)
[2021-03-31] MEDS ORDERED: BUPIVACAINE/PF (0.5%) 5 MG/1 ML 30 ML VIAL INFILTRATI ONE ×2 (13:02→15:09)
[2021-03-31] MEDS ORDERED: HYDROmorphone 1 MG/1 ML INJ IV PRN (13:07)
[2021-03-31] MEDS ORDERED: ONDANSETRON 4 MG/2 ML INJ IV PRN (13:07)
[2021-03-31] MEDS ORDERED: LIDOCAINE MPF (2%) 20 MG/1 ML VIAL 5 ML ONE (13:57)
[2021-03-31] MEDS ORDERED: fentaNYL 100 MCG/2 ML INJ ONE (13:57)
[2021-03-31] MEDS ORDERED: propofoL 200 MG/20 ML VIAL IV ONE (13:58)
[2021-03-31] MEDS ORDERED: MIDAZOLAM 2 MG/2 ML INJ IV NR (14:00)
[2021-03-31] MEDS ORDERED: ACETAMINOPHEN 500 MG TAB PO ONE (14:00)
[2021-03-31] MEDS ORDERED: CELECOXIB 200 MG CAP PO NR (14:00)
[2021-03-31] MEDS ORDERED: MAGNESIUM OXIDE 400 MG TAB PO ONE (14:00)
[2021-03-31] MEDS ORDERED: GABAPENTIN 300 MG CAP PO NR (14:00)
[2021-03-31] MEDS ORDERED: SUCCINYLCHOLINE CHLORIDE 200 MG/10 ML INJ MDV ONE (14:35)
[2021-03-31] MEDS ORDERED: LIDOCAINE (1%) 10 MG/1 ML VIAL 20 ML MDV INFILTRATI ONE (15:10)
[2021-03-31] MEDS ORDERED: SODIUM CHLORIDE 0.9% IRR 1,500 ML BOTTLE IR ONE (15:10)
[2021-03-31] MEDS ORDERED: dexAMETHasone 20 MG/5 ML VIAL ONE (15:50)
[2021-03-31] MEDS ORDERED: NEOSTIGMINE 10MG/10 ML INJ MDV ONE (15:51)
[2021-03-31] MEDS ORDERED: GLYCOPYRROLATE 0.4 MG/2 ML INJ ONE (15:51)
[2021-03-31] MEDS ORDERED: ONDANSETRON 4 MG/2 ML INJ ONE (15:51)
[2021-03-31] MEDS ORDERED: KETOROLAC 30 MG/1 ML INJ ONE (15:51)
[2021-03-31] MEDS ORDERED: oxyCODONE /ACETAMINOPHEN 5-325MG TAB PO PRN (16:03)
--- NOTE | 2021-03-31 16:03 | Operative Report ---
Operative Report Operative Report: Date of operation: 03/31/21 Preoperative diagnosis: Acute cholecystitis postOperative diagnoses: Acute cholecystitis Procedure performed: Laparoscopic cholecystectomy Surgeon: Selvin Suresh DO Electrical Test Engineer: Tommy Villanueva MD Anesthesia: Gen. endotracheal anesthesia Findings: Thickened GB wall with large stone contained within gallbladder, adhesions form GB to omentum Specimen: Gallbladder Estimated blood loss: 25cc Complications: None Disposition: Stable to PACU HPI an indication: 50-year-old female who presented to the hospital with complaints of right upper quadrant abdominal pain, n/v. She was found to have acute cholecystitis on imaging consisting of a right upper quadrant ultrasound. It was recommended that the patient undergo cholecystectomy. LFTs and Bilis were normal. All risks, benefits, alternatives to surgery were discussed with patient questions answered. Consent obtained for lap kyle, possible open, possible cholangiogram. Procedure in detail: The patient was identified in the preoperative area and taken back to the operating room, placed on the operating room table in supine position. After anesthesia was induced, the abdomen was prepped and draped in usual sterile fashion and timeout was performed. Local anesthetic was infiltrated into all of the skin incision sites. Using an 11 blade a supraumbilical incision was made and through which a Veress needle was used to insufflate the abdomen. The position of the veress needle was confirmed with the saline drop test and the abdomen was then insufflated to 15 mmHg. The veress needle was then removed and a 5 mm Optiview trocar placed through this incision. The abdomen was then inspected and there was no underlying injury to any of the abdominal contents. An additional 12 mm subxyphoid port, and 2, 5mm RUQ ports were then placed under direct visualization. The patient was then placed into reverse Trendelberg and tilted to the left. The gallbladder was visualized and appeared thickened with adhesions to omentum. The gallbladder was grasped and retracted cephalad. The omental adhesions were taken down using a hook electrocautery. The cystic duct and artery were then carefully dissected and the critical view obtained, and the cystic duct and artery were the only two structures seen entering the gallbladder. Three clips were then placed on the proximal aspect of the cystic duct and one clip distally, and 1 clips on the cystic artery proximally. The cystic artery was transected distal to the clip using hook electrocautery. The cystic duct was transected in between the clips using EndoShears. The gallbladder was dissected off the liver bed using hook electrocautery. The gallbladder was placed into a Endo Catch bag and removed from the abdomen via the 12mm port. It contained a large stone. The gallbladder fossa was then inspected and venous oozing from the liver bed was controlled using electrocautery. Upon further inspection, no identifiable bleeding or bile leakage was visualized. Hemostasis was ensured. The clips on the cystic duct and artery were visualized and intact. The patient was then placed into neutral position. The 12 mm port fascia was closed with a running 0 Vicryl stitch. The remaining ports were removed under direct visualization and the abdomen desufflated. Skin incisions were closed with 4-0 Monocryl subcuticular stitches and skin glue. All skin incisions were once again infiltrated with local anesthetic. At the end case all sponge, instrument, sharp counts were correct 2. The patient was awoken from anesthesia, extubated, taken to PACU in stable condition.
[2021-03-31] MEDS: HYDROmorphone 1 MG/1 ML INJ IV PRN ×2 (16:22→19:48)
--- NOTE | 2021-03-31 19:26 | Discharge Summary ---
Providers - Providers Date of Admission: 03/30/21 15:38 Attending physician: MANDY PIKE 03/30/21 14:28 Consult to Physician [CONS] Routine Comment: Consulting Provider: LOCO MCKEON Physician Instructions: Reason For Exam: cholecystitis Primary care physician: PATIENT SAFETY COORDINATOR Hospitalization Condition: Fair Hospital course: 50 YO Female with GERD, Cholelithiasis presented to ED for evaluation. Pt stated that "My stomach hurts". Pt stated that she had experienced abdominal pain over the past 1 day with persistent symptoms over the same timeframe. Pt states that pain is 7/10, constant, localized to the right upper quadrant,nonradiating, associated with nausea and multiple episodes of vomiting. Patient awakened at 0300 hrs with abdominal pain. Pt denies fever, chills, chest pain, back pain, palpitations, productive cough, skin rash, recent ill contacts, ingestion of food/water from new of different sources, or known exposure to COVID 19. Pt transported to [facility] via private vehicle for further care and evaluation of the aforementioned symptoms. Pt seen and evaluated in ED. All labs and images reviewed. Pt underwent Ultrasound abdomen and pelvis and found to have evidence of cholecystitis. Surgery team consulted in ED. Pt taken to the operating room and underwent laparoscopic cholecystectomy. Patient tolerated the procedure well. Patient treated with clear liquid diet and advance to regular diet. Patient tolerating diet without abdominal pain. Patient medically optimized and back to usual state of health. Patient seen and evaluated prior to discharge no significant physical exam findings. Patient subsequent discharged home instructed to follow-up with primary care physician within 1 week and to follow-up with surgical team as instructed. 35 minutes dedicated to patient discharge and coordination of care Disposition: TO HOME OR SELFCARE Final Discharge Diagnosis (Prints w/discharge instructions): Acute cholecystitis - Discharge Diagnoses (1) Acute cholecystitis Status: Acute (2) Obesity (BMI 30-39.9) Status: Acute (3) GERD (gastroesophageal reflux disease) Status: Acute Qualifiers: Esophagitis presence: without esophagitis Qualified Code(s): K21.9 - Gastro-esophageal reflux disease without esophagitis (4) DVT prophylaxis Status: Acute Core Measure Documentation - Palliative Care Palliative Care/ Comfort Measures: Not Applicable - Core Measures Any of the following diagnoses?: none Exam - Constitutional Vitals: Temp Pulse Resp BP Pulse Ox 97.7 F 76 16 133/84 100 03/31/21 19:07 03/31/21 19:07 03/31/21 19:07 03/31/21 19:07 03/31/21 19:07 General appearance: Present: no acute distress, well-nourished - EENT Eyes: Present: PERRL ENT: hearing intact, clear oral mucosa - Neck Neck: Present: supple, normal ROM - Respiratory Respiratory effort: normal Respiratory: bilateral: CTA - Cardiovascular Heart Sounds: Present: S1 & S2. Absent: rub, click - Extremities Extremities: pulses symmetrical, No edema Peripheral Pulses: within normal limits - Abdominal General gastrointestinal: Present: soft, non-tender, non-distended, normal bowel sounds Female genitourinary: Present: normal - Integumentary Integumentary: Present: clear, warm, dry - Musculoskeletal Musculoskeletal: gait normal, strength equal bilaterally - Psychiatric Psychiatric: appropriate mood/affect, intact judgment & insight - Neurologic Neurologic: CNII-XII intact, moves all extremities Plan Activity: advance as tolerated Diet: advance as tolerated Follow up with: LOCO MCKEON DO [Staff Physician] - 14 Days PRIMARY CARE, [Primary Care Provider] - 7 Days Prescriptions: Ibuprofen [Motrin 800 MG tab] 800 mg PO Q8HR PRN #30 tablet PRN Reason: Pain, Moderate (4-6) oxyCODONE /ACETAMINOPHEN [Percocet 5/325 mg] 2 tab PO Q6H PRN #20 tablet PRN Reason: Pain , Severe (7-10)
[2021-04-01 07:36] VITALS: BP 128/76
== END 2021-04-01 13:00 | disposition home or self-care (01) | DRG 419 ==
LOC: ED 06:50 → 3B 15:38
PROVIDERS: ADMIT Internal Medicine; ATTEND Internal Medicine
PROC: 0FT44ZZ Resection of Gallbladder, Percutaneous Endoscopic Approach (ICD-10-PCS; principal; 2021-03-31)
DX: K80.00 Calculus of gallbladder with acute cholecystitis without obstruction (principal); K21.9 Gastro-esophageal reflux disease without esophagitis; E66.9 Obesity, unspecified; Z68.36 Body mass index [BMI] 36.0-36.9, adult; Z71.3 Dietary counseling and surveillance; E78.5 Hyperlipidemia, unspecified
CPT/HCPCS: 36415; 76705; 80053; 81001; 83690; 84703; 85025; 88304; 96365; 96375; G0378; J0330; J1100; J1170; J1885; J1956; J2250; J2270; J2405; J2704; J2710; J3010; J7030; Q0162